=== PATIENT | female | born 1950 | race Caucasian/White ===

== ENCOUNTER 2018-01-20 13:53 | Outpatient (CLI) | payer MEDICARE, BC | END 2018-01-20 13:54 | disposition home or self-care (01) | LOC: BICMAMMO 13:53 | PROVIDERS: ATTEND Family Medicine | DX: Z12.31 Encounter for screening mammogram for malignant neoplasm of breast (principal) | CPT/HCPCS: 77063; 77067 ==

== ENCOUNTER 2018-04-08 10:35 | Day surgery (SDC) | payer MEDICARE, BC ==
[2018-04-07 13:27] VITALS: BMI 38.7
[2018-04-08] MEDS ORDERED: Bupivacaine HCl 0.5%/Epinephrine 1:200,000/PF 30 ml Vial ONE (12:29)
[2018-04-08] MEDS ORDERED: PROPOFOL 200 MG/20 ML VIAL ONE (13:11)
[2018-04-08] MEDS ORDERED: Lidocaine 1% PF 5 ML VIAL ONE (13:11)
[2018-04-08] MEDS ORDERED: Ketorolac Tromethamine 30 MG/ML VIAL ONE (13:11)
[2018-04-08] MEDS ORDERED: Metoclopramide HCl 10 MG/2 ML VIAL ONE (13:11)
[2018-04-08] MEDS ORDERED: Ondansetron PF 4 MG/2 ML Vial ONE (13:11)
[2018-04-08] MEDS ORDERED: Dexamethasone 20 MG/5 ML VIAL ONE (13:11)
[2018-04-08] MEDS ORDERED: PHENYLEPHRINE-NS 100 MCG/ML 10 ML SYRINGE ONE (13:11)
[2018-04-08] MEDS ORDERED: Fentanyl 100 MCG/2 ML VIAL ONE ×2 (14:37→16:14)
[2018-04-08] MEDS ORDERED: Midazolam HCl 2 mg/2 ml Vial ONE (14:37)
[2018-04-08 14:40] LABS: #Basophils 0.1 thou/uL (0.0-0.2); #Eosinphils 0.1 thou/uL (0.0-0.7); #Lymphocytes 2.2 thou/uL (1.20-3.40); #Monocytes 0.7 thou/uL (0.11-0.59); #Neutrophils 5.8 thou/uL (1.40-6.50); %Basophils 0.6 % (0.0-1.0); %Eosinophils 1.6 % (0.0-10.0); %Lymphocytes 24.7 % (21.0-51.0); %Monocytes 7.4 % (0.0-10.0); %Neutrophils 65.7 % (42.0-75.0); Hemoglobin 12.9 g/dL (12.0-16.0); Mean Corpuscular HGB CONC 32.1 g/dL (32.0-36.0); Mean Corpuscular Hemoglobin 30.2 pg (27.0-31.0); Mean Corpuscular Volume 94.1 fL (78.0-98.0); Mean Platelet Volume 7.8 fL (7.4-10.4); Platelet Count 243 thou/uL (130-400); RBC Distribution Width 12.9 % (11.5-14.5); Red Blood Cell (RBC) Count 4.28 mill/uL (4.20-5.40); White Blood Cell (WBC) Count 8.8 thou/uL (4.8-10.8)
[2018-04-08 15:01] LABS: Anion Gap 14 mmol/L (10-20); BUN (Urea Nitrogen) 17 mg/dL (9.8-20.1); Calc. Creatinine Clearance 114 mL/min (70-130); Calcium 9.7 mg/dL (7.8-10.44); Carbon Dioxide 25 mmol/L (23-31); Chloride 108 mmol/L (98-107); Estimated GFR-MDRD 78; Glucose 96 mg/dL (80-115); Sodium 143 mmol/L (136-145)
--- NOTE | 2018-04-08 15:42 | RAD ---
PORTABLE CHEST 1 VIEW: Date: 04/08/18 Time: 1423 hours HISTORY: Preoperative evaluation. Fracture right arm. FINDINGS/IMPRESSION: The heart size is normal. The lungs are expanded without focal areas of consolidation, pneumothorax, or pleural effusions. There is a linear lucency in the right proximal humerus which may represent fra cture. POS: [facility]
[2018-04-08] MEDS ORDERED: Bupivacaine PF 0.5% 30 ML VIAL ONE (16:05)
[2018-04-08] MEDS ORDERED: Bacitracin Zinc Ointment 30 gm TUBE ONE (16:05)
[2018-04-08] MEDS ORDERED: CEFAZOLIN 2 GM/50 ML BAG ONE (16:32)
[2018-04-08] MEDS ORDERED: Sodium Chloride 0.9% 10 ML ONE (17:10)
--- NOTE | 2018-04-08 20:47 | RAD ---
INTRAOPERATIVE IMAGING OF RIGHT WRIST: 04/08/18 COMPARISON: None. HISTORY: Fracture status post ORIF. FINDINGS: Three intraoperative images are provided. Imaging demonstrates placement of a volar screw and plate f ixation of the distal radius. IMPRESSION: ORIF as above. POS: [facility]
--- NOTE | 2018-04-11 15:32 | OP ---
PREOPERATIVE DIAGNOSIS: Right displaced 3-part distal radius fracture. POSTOPERATIVE DIAGNOSIS: Right displaced 3-part distal radius fracture with punch central around the central ridge with a component on both the medial complex and on the styloid complex. PROCEDURES PERFORMED: 1. Open reduction and internal fixation of right distal radius fracture, 3-part. 2. Bone grafting of -punch lesion using approximately 6 mL of cancellous bone chips presoaked in blood before placing. ESTIMATED BLOOD LOSS: 10 mL. TOURNIQUET TIME: 48 minutes. C-ARM USE: Yes. INDICATION FOR PROCEDURE: The patient had been brought to the operating room, because a -punch le familia was seen in the sagittal plane with about 3 to 4-mm depression and in the frontal plane on both sides of the central ridge about 1 to 2 mm. For this reason, she was brought because the intra-artic ular component of this fracture necessitated the need to get as close to anatomic reduction as gina jerez. She was counseled so was her son and came to the operating room after a block. DESCRIPTION OF PROCEDURE: After successful augmentation of a block with general LMA technique, the p atient had the limb prepped and draped, time-out was done appropriately, tourniquet inflated to 250 m mHg pressure exsanguination, a zigzag incision centered over the flexor carpi radialis was done, we d eveloped interval between the radial artery and flexor carpi radialis. L-shaped incision was then ma de in the pronator quadratus and we freed up the brachioradialis from the styloid to allow better man euverability. We then reduced the fracture except for the -punch with approximately 10-degree pal mar tilt to match the contralateral side. We then began with use of elevation of the fragments, soak ed the bone graft in blood and normal saline and then placed this bone graft underneath the -punch regions until in the frontal and sagittal plane it was nearly anatomic. You could still see the fra cture line, but there was no further depression in the frontal and sagittal plane. At this point, we performed the open reduction, percutaneous pinning x2 styloid pins with appropriate tilt. We placed a [employer] 4-hole subarticular distal radius plate across the fracture and centered in the frontal sagittal plane in the usual technique of plates and screws in distal row first to achi quinn more tilt. We then achieved approximately 10-degree palmar tilt, which nearly matched that of co ntralateral side. With this tilt and then placing screws proximal to the fracture, we maintained the position and there was no gross movement once the K-wires were removed. We released the tourniquet. The radiographs showed excellent position in frontal and sagittal plane with no screw migration in the joint, and then we were able to repair the pronator quadratus after ac hieving hemostasis using an interrupted 0 Vicryl in a bvuste-oi-coalf pattern. Subcutaneous closure was accomplished with a running 4-0 Monocryl and the skin reapproximated with 4-0 nylon in interrupte d mattress pattern. Bulky dressing was applied along with sugar-tong splint and the patient left the operating room without evidence of anesthetic or operative complications.
--- NOTE | 2018-04-13 08:15 | EKG ---
Test Reason : PREOP Blood Pressure : / mmHG Vent. Rate : 082 BPM Atrial Rate : 082 BPM P-R Int : 166 ms QRS Dur : 080 ms QT Int : 374 ms P-R-T Axes : 064 020 028 degrees QTc Int : 436 ms Normal sinus rhythm Nonspecific ST abnormality Abnormal ECG No previous ECGs available Confirmed by DR. Lev HERRERA ([id number]) on 04/13/2018 8:15:04 AM Referred By: AMOS Confirmed By:DR. Lev HERRERA
== END 2018-04-08 20:07 | disposition home or self-care (01) ==
LOC: SDC 10:35
PROVIDERS: ATTEND Orthopaedic Surgery Hand Surgery
PROC: 0PSH04Z Reposition Right Radius with Internal Fixation Device, Open Approach (ICD-10-PCS; principal; 2018-04-08)
PROC: 0PUH0KZ Supplement Right Radius with Nonautologous Tissue Substitute, Open Approach (ICD-10-PCS; 2018-04-08)
DX: S52.571A Other intraarticular fracture of lower end of right radius, initial encounter for closed fracture (principal); Z79.899 Other long term (current) drug therapy; W19.XXXA Unspecified fall, initial encounter
CPT/HCPCS: 25609; 25999; 71045; 73100; 76001; 80048; 85025; 93005; C1713 ×2; 36415; 93010; J0670; J1100; J1885; J2001; J2250; J2405; J2704; J2765; J3010; J3490; S0020

== ENCOUNTER 2018-12-08 12:45 | Outpatient (CLI) | payer MEDICARE, BC ==
--- NOTE | 2018-12-08 14:05 | RAD ---
TWO VIEWS OF THE CHEST: COMPARISON: 04/08/2018. HISTORY: Preoperative radiograph. FINDINGS: Two views of the chest show normal sized cardiomediastinal silhouette. There is no evidence of consol idation, mass, or pleural effusion. The bones are unremarkable. IMPRESSION: No evidence of acute cardiopulmonary disease. POS: [facility]
[2018-12-08 14:19] LABS: #Eosinphils 0.2 thou/uL (0.0-0.7); #Lymphocytes 2.7 thou/uL (1.20-3.40); #Monocytes 0.5 thou/uL (0.11-0.59); %Basophils 0.5 % (0.0-1.0); %Eosinophils 2.2 % (0.0-10.0); %Lymphocytes 36.2 % (21.0-51.0); %Monocytes 7.2 % (0.0-10.0); %Neutrophils 53.9 % (42.0-75.0); Hemoglobin 14.3 g/dL (12.0-16.0); Mean Corpuscular HGB CONC 31.2 g/dL (32.0-36.0); Mean Corpuscular Hemoglobin 30.4 pg (27.0-31.0); Mean Corpuscular Volume 97.2 fL (78.0-98.0); Mean Platelet Volume 7.9 fL (7.4-10.4); Platelet Count 225 thou/uL (130-400); White Blood Cell (WBC) Count 7.4 thou/uL (4.8-10.8)
[2018-12-08 14:32] LABS: Bilirubin Negative (Negative); Blood, Urine Negative (Negative); Clarity Clear (Clear); Glucose, Urine (Dipstick) Normal (Negative); Leukocyte Negative Leu/uL (Negative); Nitrite Negative (Negative); Protein, Urine (Dipstick) Negative (Neg-Trace); RBC/HPF 0-3 HPF (0-3); Squamous Epithelial 0-3 HPF (0-3); Urobilinogen Normal mg/dL (Less than 2); WBC/HPF 0-3 HPF (0-3)
[2018-12-08 14:40] LABS: INR-International Normal Ratio 0.9; Prothrombin Time 12.3 SEC (12.0-14.7)
[2018-12-08 14:41] LABS: Anion Gap 14 mmol/L (10-20); BUN (Urea Nitrogen) 16 mg/dL (9.8-20.1); Calc. Creatinine Clearance 0 mL/min (70-130); Calcium 9.8 mg/dL (7.8-10.44); Carbon Dioxide 26 mmol/L (23-31); Chloride 104 mmol/L (98-107); Estimated GFR-MDRD 74; Glucose 76 mg/dL (80-115); PTT 31.5 SEC (22.9-36.1); Potassium 4.4 mmol/L (3.5-5.1); Sodium 140 mmol/L (136-145)
[2018-12-08 14:48] LABS: Bacteria/HPF None Seen HPF (None Seen)
--- NOTE | 2018-12-08 17:03 | EKG ---
Test Reason : Blood Pressure : / mmHG Vent. Rate : 060 BPM Atrial Rate : 060 BPM P-R Int : 170 ms QRS Dur : 092 ms QT Int : 404 ms P-R-T Axes : 068 024 028 degrees QTc Int : 404 ms Normal sinus rhythm minimal st abnormality non specific When compared with ECG of 08-APR-2018 14:18, No significant change was found Confirmed by DR. Montez PAGE (3) on 12/08/2018 5:02:58 PM Referred By: CYNTHIA Confirmed By:DR. Montez PAGE
== END 2018-12-08 12:46 | disposition home or self-care (01) ==
LOC: LABBT 12:45
PROVIDERS: ATTEND Orthopaedic Surgery
DX: Z01.818 Encounter for other preprocedural examination (principal); M17.11 Unilateral primary osteoarthritis, right knee
CPT/HCPCS: 71046; 80048; 81001; 85025; 85610; 85730; 87081; 93005; 93010

== ENCOUNTER 2018-12-13 05:32 | Inpatient (IN) | payer MEDICARE, BC ==
[2018-12-08 13:20] VITALS: BMI 37.2
[2018-12-13] MEDS ORDERED: Sodium Chloride 0.9% 100 ML ONE (05:52)
[2018-12-13] MEDS ORDERED: ceFAZolin Sodium (SDC) 2 GM/100 ML BAG ONE (05:52)
[2018-12-13] MEDS ORDERED: Tranexamic Acid 1,000 MG/10 ML VIAL ONE (05:52)
[2018-12-13] MEDS ORDERED: Midazolam HCl 2 mg/2 ml Vial ONE ×2 (06:12→06:33)
[2018-12-13] MEDS ORDERED: Fentanyl 100 MCG/2 ML VIAL ONE ×3 (06:12→09:14)
[2018-12-13] MEDS ORDERED: Lidocaine 1% (PF) 30 ML VIAL ONE (06:12)
[2018-12-13] MEDS ORDERED: Ropivacaine 0.2% HCl/PF 20 ML ONE (06:12)
[2018-12-13] MEDS ORDERED: Vancomycin HCl 1.5 GM in Sodium Chloride 0.9% 250 ML 300 ML IVPB SCH (06:15)
[2018-12-13] MEDS ORDERED: Acetaminophen 325 MG TAB PO PRN (07:11)
[2018-12-13] MEDS ORDERED: Ondansetron PF 4 MG/2 ML Vial IVP PRN (07:11)
[2018-12-13] MEDS ORDERED: HYDROcodone/Acetaminophen 10/325 mg Tablet PO PRN ×2 (07:11)
[2018-12-13] MEDS ORDERED: Zolpidem Tartrate 5 MG TAB PO PRN (07:11)
[2018-12-13] MEDS ORDERED: diphenhydrAMINE 25 MG CAP PO PRN (07:11)
[2018-12-13] MEDS ORDERED: Promethazine HCl 25 MG/ML VIAL IM PRN ×2 (07:11→07:50)
[2018-12-13] MEDS ORDERED: traMADol HCl 50 MG TAB PO PRN (07:26)
[2018-12-13] MEDS ORDERED: Ondansetron HCl/PF 4 MG/2 ML Vial IVP PRN (07:50)
[2018-12-13] MEDS ORDERED: Promethazine HCl 25 MG/ML VIAL SLOW IVP PRN (07:50)
--- NOTE | 2018-12-13 10:12 | RAD ---
RIGHT KNEE TWO VIEWS: HISTORY: Postop total knee arthroscopy. FINDINGS: There are recent postop changes of total knee arthroplasty with good position and alignment. Soft ti ssue air is present. POS: [facility]
[2018-12-13] MEDS: Sodium Chloride 0.9% 1,000 ML IV SCH ×2 (10:23→16:17)
[2018-12-13] MEDS: Aspirin 81 mg Enteric Coated Tablet PO SCH ×2 (10:23→19:50)
[2018-12-13] MEDS: guaiFENesin ER 600 MG TAB PO SCH (10:24)
[2018-12-13] MEDS: Senokot S 8.6-50 MG TAB PO SCH ×2 (10:24→19:56)
[2018-12-13] MEDS: Multivitamin W/ Minerals 1 TAB PO SCH (10:24)
[2018-12-13] MEDS: Ferrous Gluconate 324 MG TAB PO SCH ×2 (10:24→19:50)
[2018-12-13] MEDS ORDERED: Prevnar 13-Val Conj/PF 0.5 ML SYRINGE IM ONE (10:30)
[2018-12-13] MEDS: Ketorolac Tromethamine 30 MG/ML VIAL IVP SCH ×2 (13:19→21:47)
[2018-12-13] MEDS: CEFAZOLIN 2 GM in Sodium Chloride 0.9% 100 ML IVPB SCH ×2 (13:19→21:47)
--- NOTE | 2018-12-13 15:13 | OP ---
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 POSTOPERATIVE DIAGNOSES: 1. 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 2. Intra-articular arthrofibrosis. DIRECTOR OF PLACEMENT: Curtis May PA-C ANESTHESIA: General via LMA, augmented with anterior sciatic block and indwelling adductor canal block. COMPONENTS USED: [employer] triathlon size 4 cemented cruciate sparing femoral component with a size 4 primary cemented tibial base plate, 9 mm polyethylene fixed bearing insert and S27 patellar button. TOURNIQUET TIME: 66 minutes at 300 mmHg. ESTIMATED BLOOD LOSS: Less than 100. FINDINGS: End-stage severe degenerative tricompartmental disease, [id number] arthrosis, periarticular osteophyte formation, large serous effusion, hypertrophic ArthroFit fibrotic synovium with significant stiffness preoperatively and tethering of the patella. Changes consistent with chronic degenerative genu valgum. DRAINS: None. SPECIMENS: None. COMPLICATIONS: None. INPUT: 1000 mL crystalloid. OUTPUT: 175 mL clear yellow urine. INDICATION FOR SURGERY: Lauren is a 68-year-old white female, who has had progressive left knee pain and problems with standing or walking for the last five to seven years. She has also had stiffness and discomfort in the knee chronically and has elected to proceed with total knee arthroplasty as definitive treatment of her pain. PROCEDURE IN DETAIL: After informed consent was obtained in the preoperative holding area, the patient was taken to the operative suite where general anesthesia was induced. Once adequate level of general anesthesia was obtained, the patient was positioned and a well-padded tourniquet was placed around the left proximal thigh. The left lower extremity was then prepped and draped in the usual sterile fashion. Prior to exsanguination, a time-out was called and all members of the surgical team agreed upon site, surgeon, and patient. The extremity was then exsanguinated and the tourniquet was raised. A midline longitudinal incision was then made directly over the patella extending 2 fingerbreadths above the superior pole of the patella and 2 fingerbreadths inferior to the inferior patellar pole of the patella. Deeper subcutaneous layers were dissected sharply and local bleeding was controlled with Bovie electrocautery. A quad tendon longitudinal split was then made sharply and a median parapatellar arthrotomy was carried out both sharp and with Bovie electrocautery, carried down to 1 fingerbreadth medial to the tibial tubercle. The knee was then placed into flexion and the patella was everted nicely, and a copious fat pad ectomy was performed allowing for greater exposure of the tibia. The computer-assisted distal femoral fiducial was then placed and pinned firmly, and the distal femoral cutting guide was pinned firmly into place. The oscillating saw was then used to remove the appropriate amount of bone. The 4-in-1 cutting block was then placed on the distal femur and the oscillating saw was used to remove the appropriate amount of bone off the anterior, posterior, and chamfer cuts. After completion of bone cuts, the anterior cruciate ligament was resected sharply and the posterior cruciate ligament retractor was placed and the tibia was subluxed for better exposure. Partial meniscectomies were carried out, and the tibial computer-assisted fiducial was pinned, and the cutting guide was placed. Oscillating saw was then used to remove the bone, with Hohmann retractors used to take care and protect the collateral ligaments. After the tibial resection was performed, a laminar ornithology teacher was placed in between the freshened bone cuts. The knee placed at 90 degrees and further bilateral meniscectomies were carried out, and the curved osteotome and curettage were used to remove any excess bone spurs in the posterior compartment. The trial femoral component, tibial baseplate were placed with the appropriate polyethylene trial insert with an appropriate polyethylene spacer and patellar button. The knee was taken through full range of motion with flexion and extension from 0 to 90 degrees and patellar broach squarely in the trochlea without any squinting or subluxation noted. The knee was also stable to varus and valgus stressing at 0, 15, 45, and 90 degrees of flexion. The drawer was negative. All trial components were then removed and the keel punch was used to provide the appropriate defect in the tibia with a mallet. The freshened bone cuts were copiously irrigated with pulsatile lavage of about 1.5 L to remove all excess debris. The freshened bone cuts were then dried with suction and lap sponge. The knee was placed in flexion and retractors were placed to provide access to all bone cuts. Tobramycin-impregnated methyl methacrylate cement was then placed on the freshened bone cuts and implants which were malleted firmly into place. Curettage and [place] elevators were used to remove any excess bone cement. The knee was placed into full extension and the patellar button was placed under compression, and the cement was allowed to cure. Once completed, the components were again taken through full range of motion and copious irrigation of the knee was carried out with another liter of normal saline. All components were inspected fully with full range of motion and varus and valgus stressing. There was no laxity noted and full extension was observed clinically. Primary closure was accomplished with #2 interrupted Vicryl stitch of the arthrotomy defect. This was oversewn with a #2 running Quill barbed stitch. The gravitational platelet system was then injected into the arthrotomy prior to closure. The subcutaneous layer was then closed with a running 0 barbed Monocryl stitch and skin closure accomplished with a running subcuticular 3-0 Monocryl barbed Quill stitch and augmented with cement on the skin. Tourniquet was lowered. Good spontaneous return of distal pulses was noted clinically and a sterile dressing was applied to the incision. The procedure was terminated without any complications. The patient was awakened in the operative suite and the was removed, and the patient was taken to the recovery room in stable condition. Job ID: [id number]
[2018-12-13] MEDS: Donepezil HCl 5 MG TAB PO SCH (19:50)
[2018-12-13] MEDS: traMADol HCl 50 MG TAB PO PRN (19:51)
[2018-12-14] MEDS: Sodium Chloride 0.9% 1,000 ML IV SCH ×3 (04:15→21:48)
[2018-12-14 05:51] LABS: Hemoglobin 11.2 g/dL (12.0-16.0); Mean Corpuscular HGB CONC 30.3 g/dL (32.0-36.0); Mean Corpuscular Hemoglobin 29.6 pg (27.0-31.0); Mean Corpuscular Volume 97.9 fL (78.0-98.0); Mean Platelet Volume 8.1 fL (7.4-10.4); Platelet Count 165 thou/uL (130-400); RBC Distribution Width 12.9 % (11.5-14.5); Red Blood Cell (RBC) Count 3.78 mill/uL (4.20-5.40); White Blood Cell (WBC) Count 7.7 thou/uL (4.8-10.8)
[2018-12-14] MEDS: Ketorolac Tromethamine 30 MG/ML VIAL IVP SCH ×3 (06:02→21:02)
--- NOTE | 2018-12-14 07:29 | PDOC.HOSPP ---
- Subjective Subjective: pt up in bed no complains - Objective Vital Signs & Weight: Vital Signs (12 hours) Temp Pulse Resp BP Pulse Ox 12/14/18 03:25 98.5 F 83 18 113/72 99 12/13/18 23:16 99.2 F 80 18 120/73 95 12/13/18 20:05 98.7 F 81 18 121/72 98 Weight Weight 210 lb I&O: 12/13/18 12/14/18 12/15/18 06:59 06:59 06:59 Intake Total 850 Output Total 975 Balance -125 Result Diagrams: 12/15/18 04:00 ROS - Review of Systems All systems: All other ROS were reviewed and found negative. ENT: denies: ear pain, ear discharge, nose pain, nose discharge, nose congestion , mouth pain, mouth swelling, throat pain, throat swelling, other Respiratory: denies: cough, dry, shortness of breath, hemoptysis, SOB with excertion, pleuritic pain, sputum, wheezing, other Cardiovascular: denies: chest pain, palpitations, orthopnea, paroxysmal noc. dyspnea, edema, light headedness, other - Medication Medications: Active Medications Generic Name Dose Route Start Last Admin Trade Name Freq PRN Reason Stop Dose Admin Aspirin 81 mg 12/13/18 09:00 12/13/18 19:50 Ecotrin PO 81 mg BID HEBER Administration Donepezil HCl 5 mg 12/13/18 21:00 12/13/18 19:50 Aricept PO 5 mg HS HEBER Administration Ferrous Gluconate 324 mg 12/13/18 09:00 12/13/18 19:50 Fergon PO 324 mg BID HEBER Administration Guaifenesin 600 mg 12/13/18 09:00 12/13/18 10:24 Mucinex PO Not Given DAILY HEBER Sodium Chloride 1,000 mls @ 100 mls/hr 12/13/18 07:15 12/14/18 04:15 Normal Saline 0.9% IV Not Given .Q10H HEBER Iron/Minerals/Multivitamins 1 tab 12/13/18 09:00 12/13/18 10:24 Theragran M PO Not Given DAILY HEBER Ketorolac Tromethamine 15 mg 12/13/18 14:00 12/14/18 06:02 Toradol IVP 12/15/18 14:01 15 mg Q8HR HEBER Administration Senna/Docusate Sodium 2 tab 12/13/18 09:00 12/13/18 19:56 Senokot S PO Not Given BID HEBER Tramadol HCl 100 mg 12/13/18 07:26 12/13/18 19:51 Ultram PO 100 mg Q6H PRN Administration Moderate Pain 4-6 - Exam Neck: negative: supple, symmetric, no JVD, no Thyromegaly, no lymphadenopathy, no carotid bruit, JVD Heart: negative: RRR, no murmur, no gallops, no rubs, normal peripheral pulses, irregular, diminshed peripheral pulses, murmur present, II/IV, III/IV Respiratory: negative: CTAB, no wheezes, no rales, no ronchi, normal chest expansion, no tachypnea, normal percussion, rales, rhonchi, tachypneic, wheezes Hosp A/P (1) Acute blood loss anemia Code(s): D62 - ACUTE POSTHEMORRHAGIC ANEMIA Status: Acute (2) Degenerative joint disease Code(s): M19.90 - UNSPECIFIED OSTEOARTHRITIS, UNSPECIFIED SITE Status: Acute - Plan will continue to monitor. pt on stool softeners. on asa for dvt ppx.
[2018-12-14] MEDS: Aspirin 81 mg Enteric Coated Tablet PO SCH ×2 (08:08→20:59)
[2018-12-14] MEDS: guaiFENesin ER 600 MG TAB PO SCH (08:08)
[2018-12-14] MEDS: Ferrous Gluconate 324 MG TAB PO SCH ×2 (08:08→21:00)
[2018-12-14] MEDS: Senokot S 8.6-50 MG TAB PO SCH ×2 (08:08→20:59)
[2018-12-14] MEDS: traMADol HCl 50 MG TAB PO PRN ×2 (08:09→20:59)
[2018-12-14] MEDS: Multivitamin W/ Minerals 1 TAB PO SCH (08:09)
[2018-12-14] MEDS: Ropivacaine HCl/PF 250 ML in Premix Bag 1 BAG NERVE BLCK SCH (11:03)
[2018-12-14] MEDS: Donepezil HCl 5 MG TAB PO SCH (20:59)
[2018-12-15 04:26] LABS: Hemoglobin 11.1 g/dL (12.0-16.0); Mean Corpuscular HGB CONC 32.5 g/dL (32.0-36.0); Mean Corpuscular Hemoglobin 31.4 pg (27.0-31.0); Mean Corpuscular Volume 96.4 fL (78.0-98.0); Mean Platelet Volume 7.7 fL (7.4-10.4); Platelet Count 159 thou/uL (130-400); RBC Distribution Width 12.5 % (11.5-14.5); Red Blood Cell (RBC) Count 3.55 mill/uL (4.20-5.40); White Blood Cell (WBC) Count 7.9 thou/uL (4.8-10.8)
[2018-12-15] MEDS: Ketorolac Tromethamine 30 MG/ML VIAL IVP SCH ×2 (06:18→13:45)
[2018-12-15] MEDS: traMADol HCl 50 MG TAB PO PRN (08:20)
[2018-12-15] MEDS: guaiFENesin ER 600 MG TAB PO SCH (08:22)
[2018-12-15] MEDS: Ferrous Gluconate 324 MG TAB PO SCH ×2 (08:22→19:53)
[2018-12-15] MEDS: Senokot S 8.6-50 MG TAB PO SCH ×2 (08:22→19:53)
[2018-12-15] MEDS: Multivitamin W/ Minerals 1 TAB PO SCH (08:22)
[2018-12-15] MEDS: Aspirin 81 mg Enteric Coated Tablet PO SCH ×2 (08:22→19:53)
[2018-12-15] MEDS: Sodium Chloride 0.9% 1,000 ML IV SCH (08:22)
--- NOTE | 2018-12-15 09:16 | PRG ---
DATE OF SERVICE: 12/15/2018 SUBJECTIVE: Lauren is a 68-year-old white female, postop day 2 from a right total knee arthroplasty. She is doing relatively well. She is scheduled for transfer to skilled facility tomorrow. OBJECTIVE: VITAL SIGNS: Temperature 97.6, pulse 90, respiratory rate 15, and blood pressure 144/74. GENERAL: She is alert and oriented to person, place, time, and situation. Grossly nonfocal, appropriate with examiner, and responsive. EXTREMITIES: Visual inspection of the right lower extremity demonstrates her incision to be clean and closed. No erythema. No strikethrough. She is neurovascularly intact in the right lower extremity. LABORATORY DATA: Hemoglobin and hematocrit 11.1 and 34.2. IMPRESSION: A 68-year-old female postop day 2, right total knee arthroplasty, doing well. PLAN: Continue current care. Probable transfer tomorrow to a skilled facility. Job ID: [id number]
[2018-12-15] MEDS: Ropivacaine HCl/PF 250 ML in Premix Bag 1 BAG NERVE BLCK SCH (10:32)
--- NOTE | 2018-12-15 15:06 | PDOC.HOSPP ---
- Subjective Subjective: pt up in bed no complains - Objective Vital Signs & Weight: Vital Signs (12 hours) Temp Pulse Resp BP Pulse Ox 12/15/18 11:53 98.3 F 90 14 134/81 97 12/15/18 07:55 96 12/15/18 07:34 97.6 F 90 15 144/74 H 96 12/15/18 07:13 100.9 F H 85 18 142/77 H 93 L 12/15/18 03:40 98.4 F 78 18 118/65 95 Weight Admit Weight 210 lb Weight 210 lb I&O: 12/14/18 12/15/18 12/16/18 06:59 06:59 06:59 Intake Total 850 900 Output Total 975 Balance -125 900 Result Diagrams: 12/15/18 04:00 ROS - Review of Systems All systems: All other ROS were reviewed and found negative. ENT: denies: ear pain, ear discharge, nose pain, nose discharge, nose congestion , mouth pain, mouth swelling, throat pain, throat swelling, other Respiratory: denies: cough, dry, shortness of breath, hemoptysis, SOB with excertion, pleuritic pain, sputum, wheezing, other Cardiovascular: denies: chest pain, palpitations, orthopnea, paroxysmal noc. dyspnea, edema, light headedness, other - Medication Medications: Active Medications Generic Name Dose Route Start Last Admin Trade Name Freq PRN Reason Stop Dose Admin Hydrocodone Bitart/Acetaminophen 2 tab 12/13/18 07:11 12/14/18 10:59 [place] 10/325 PO 2 tab Q4H PRN Administration Severe Pain (7-10) Aspirin 81 mg 12/13/18 09:00 12/15/18 08:22 Ecotrin PO 81 mg BID HEBER Administration Donepezil HCl 5 mg 12/13/18 21:00 12/14/18 20:59 Aricept PO 5 mg HS HEBER Administration Ferrous Gluconate 324 mg 12/13/18 09:00 12/15/18 08:22 Fergon PO 324 mg BID HEBER Administration Guaifenesin 600 mg 12/13/18 09:00 12/15/18 08:22 Mucinex PO 600 mg DAILY HEBER Administration Ropivacaine 250 ml/ Device 250 mls @ 10 mls/hr 12/13/18 07:26 07/25/19 10:32 NERVE BLCK 250 mls INF HEBER Administration As Directed Iron/Minerals/Multivitamins 1 tab 12/13/18 09:00 12/15/18 08:22 Theragran M PO 1 tab DAILY HEBER Administration Senna/Docusate Sodium 2 tab 12/13/18 09:00 12/15/18 08:22 Senokot S PO 2 tab BID HEBER Administration Sodium Chloride 10 ml 12/13/18 07:11 12/15/18 13:46 Flush - Normal Saline IVF 10 ml PRN PRN Administration Saline Flush Tramadol HCl 100 mg 12/13/18 07:26 12/15/18 08:20 Ultram PO 100 mg Q6H PRN Administration Moderate Pain 4-6 - Exam Neck: negative: supple, symmetric, no JVD, no Thyromegaly, no lymphadenopathy, no carotid bruit, JVD Heart: negative: RRR, no murmur, no gallops, no rubs, normal peripheral pulses, irregular, diminshed peripheral pulses, murmur present, II/IV, III/IV Hosp A/P (1) Degenerative joint disease Code(s): M19.90 - UNSPECIFIED OSTEOARTHRITIS, UNSPECIFIED SITE Status: Acute (2) Acute blood loss anemia Code(s): D62 - ACUTE POSTHEMORRHAGIC ANEMIA Status: Acute - Plan encouraged pt to do IS, pain controlled. will sign off.
[2018-12-15] MEDS: Donepezil HCl 5 MG TAB PO SCH (19:54)
[2018-12-16] MEDS: Multivitamin W/ Minerals 1 TAB PO SCH (09:08)
[2018-12-16] MEDS: Senokot S 8.6-50 MG TAB PO SCH (09:08)
[2018-12-16] MEDS: Aspirin 81 mg Enteric Coated Tablet PO SCH (09:08)
[2018-12-16] MEDS: Ferrous Gluconate 324 MG TAB PO SCH (09:08)
[2018-12-16] MEDS: guaiFENesin ER 600 MG TAB PO SCH (09:08)
[2018-12-16] MEDS: traMADol HCl 50 MG TAB PO PRN (09:12)
[2018-12-16 11:36] VITALS: BP 123/75; TEMP 98.1
== END 2018-12-16 13:11 | DRG 470 ==
LOC: SDC 05:32 → SJJU 07:11
PROVIDERS: ADMIT Orthopaedic Surgery; ATTEND Orthopaedic Surgery
PROC: 0SRC0J9 Replacement of Right Knee Joint with Synthetic Substitute, Cemented, Open Approach (ICD-10-PCS; principal; 2018-12-13)
DX: M17.11 Unilateral primary osteoarthritis, right knee (principal); D62 Acute posthemorrhagic anemia; M21.061 Valgus deformity, not elsewhere classified, right knee; F17.210 Nicotine dependence, cigarettes, uncomplicated
CPT/HCPCS: 36415; 85027; C1713; C1776; J0690; J1885; J2001; J2250; J2795; J3010; J3370; J3490; J7050

== ENCOUNTER 2019-06-13 10:35 | Outpatient (CLI) | payer MEDICARE, BC ==
--- NOTE | 2019-06-13 11:42 | MMO ---
Bilateral MAMMO Bilat Screen [facility]. CLINICAL HISTORY: Patient is 68 years old and is seen for screening. The patient has no family history of breast cancer. The patient has no personal history of cancer. VIEWS: The views performed were: bilateral craniocaudal with tomosynthesis and bilateral mediolateral oblique with tomosynthesis. FILMS COMPARED: The present examination has been compared to a prior imaging study performed at [facility] on 01/20/2018. This study has been interpreted with the assistance of computer-aided detection. MAMMOGRAM FINDINGS: There are scattered fibroglandular densities. There are no suspicious masses, suspicious calcifications, or new areas of architectural distortion. IMPRESSION: THERE IS NO MAMMOGRAPHIC EVIDENCE OF MALIGNANCY. A ROUTINE FOLLOW-UP MAMMOGRAM IN 1 YEAR IS RECOMMENDED. THE RESULTS OF THIS EXAM WERE SENT TO THE PATIENT. ACR BI-RADS Category 1 - Negative MAMMOGRAPHY NOTE: 1. A negative mammogram report should not delay a biopsy if a dominant of clinically suspicious mass is present. 2. Approximately 10% to 15% of breast cancers are not detected by mammography. 3. Adenosis and dense breasts may obscure an underlying neoplasm. Reported by: JAIR SILVERIO MD Electonically Signed: [id number]
== END 2019-06-13 10:36 | disposition home or self-care (01) ==
LOC: BICMAMMO 10:35
PROVIDERS: ATTEND Family Medicine
DX: Z12.31 Encounter for screening mammogram for malignant neoplasm of breast (principal)
CPT/HCPCS: 77063; 77067

== ENCOUNTER 2019-11-10 10:41 | Inpatient (IN) | payer MEDICARE, BC ==
[2019-11-10] MEDS ORDERED: Ketorolac Tromethamine 30 MG/ML VIAL ONE (11:28)
[2019-11-10] MEDS ORDERED: HYDROcodone/Acetaminophen 5/325 mg Tablet ONE (11:28)
--- NOTE | 2019-11-10 12:01 | RAD ---
XR Elbow Rt 4 View STANDARD History: Fall. Injury Comparison: None. Findings: Comminuted displaced fracture of the radial head which is displaced posteriorly. There is a fracture through the olecranon process of the ulna at the olecranon/diaphyseal junction with apex posterior angulation and overriding. Impression: 1. Comminuted displaced fracture of the radial head impacted upon the capitellum with displaced porti on along the posterior joint capsule. 2. Fracture through the olecranon process/diaphyseal junction with comminution and apex posterior ang ulation.
[2019-11-10] MEDS ORDERED: Fentanyl 100 MCG/2 ML VIAL ONE ×2 (12:56→13:41)
[2019-11-10] MEDS ORDERED: Ketamine 50 MG/ML (10ML VIAL) ONE (12:56)
[2019-11-10 13:11] LABS: #Lymphocytes 0.9 thou/uL (1.20-3.40); #Monocytes 0.4 thou/uL (0.11-0.59); #Neutrophils 11.4 thou/uL (1.40-6.50); %Basophils 0.2 % (0.0-1.0); %Eosinophils 0.3 % (0.0-10.0); %Lymphocytes 6.7 % (21.0-51.0); %Monocytes 3.3 % (0.0-10.0); %Neutrophils 89.5 % (42.0-75.0); Hemoglobin 14.8 g/dL (12.0-16.0); Mean Corpuscular HGB CONC 32.2 g/dL (32.0-36.0); Mean Corpuscular Hemoglobin 31.2 pg (27.0-31.0); Mean Platelet Volume 7.8 fL (7.4-10.4); Platelet Count 211 thou/uL (130-400); RBC Distribution Width 12.8 % (11.5-14.5); Red Blood Cell (RBC) Count 4.76 mill/uL (4.20-5.40); White Blood Cell (WBC) Count 12.7 thou/uL (4.8-10.8)
[2019-11-10 13:20] LABS: PTT 29.9 sec (22.9-36.1); Prothrombin Time 13.4 sec (12.0-14.7)
[2019-11-10 13:40] LABS: ALT (SGPT) 12 U/L (8-55); AST (SGOT) 17 U/L (5-34); Albumin 4.2 g/dL (3.4-4.8); Alkaline Phosphatase 75 U/L (40-110); Anion Gap 15 mmol/L (10-20); BUN (Urea Nitrogen) 14 mg/dL (9.8-20.1); Bilirubin, Total 0.4 mg/dL (0.2-1.2); Calc. Creatinine Clearance 0 mL/min (70-130); Calcium 9.6 mg/dL (7.8-10.44); Carbon Dioxide 25 mmol/L (23-31); Chloride 104 mmol/L (98-107); Estimated GFR-MDRD 66; Globulin 3.4 g/dL (2.4-3.5); Glucose 111 mg/dL (80-115); Potassium 4.3 mmol/L (3.5-5.1); Protein, Total 7.6 g/dL (6.0-8.3); Sodium 140 mmol/L (136-145)
--- NOTE | 2019-11-10 14:19 | RAD ---
EXAM: 2 views of the right elbow HISTORY: Reduction of elbow dislocation COMPARISON: 11/10/2019 at 11:03 AM FINDINGS: No elbow effusion is seen. There is a fracture of the proximal aspect of the ulna. There is persistent dislocation of the radial head at the elbow joint. There may be a fracture of the anterior aspect of the radial head. No significant degenerative changes are seen. Moderate diffuse s oft tissue swelling is present. IMPRESSION: 1. Persistent dislocation of radial head with possible fracture of the anterior aspect of the radial head 2. Proximal ulnar fracture
[2019-11-10] MEDS ORDERED: Morphine 2 MG/ML SYRINGE SLOW IVP PRN (14:44)
[2019-11-10] MEDS ORDERED: HYDROcodone/Acetaminophen 10/325 mg Tablet PO PRN ×2 (14:44)
[2019-11-10] MEDS ORDERED: Ondansetron PF 4 MG/2 ML Vial IV PRN (14:44)
[2019-11-10] MEDS ORDERED: TETANUS AND DIPHTHERIA TOX/PF 0.5 ML DISP.SYRIN IM SCH (14:45)
[2019-11-10] MEDS ORDERED: Communication Order-Pharmacy FS SCH (14:45)
--- NOTE | 2019-11-10 15:19 | CT ---
Exam: Right upper extremity CT without contrast. Right elbow CT without contrast HISTORY: Trauma. FINDINGS: There does not appear to be any fracture with regards the right humerus. There is a displaced fractur e involving the proximal ulna diaphysis with comminution. There does not appear to be intra-articular extension. There is a radial head fracture with subluxation of the radial head. There is a 0.7 cm x 0.8 cm fracture fragment. Donor site is presumed to be from the radial head. There is an associated joint effusion. IMPRESSION: 1. Presumed radial head fracture with subluxation. 2. Proximal ulnar diaphyseal fracture with comminution and fracture
[2019-11-10 18:48] VITALS: BMI 38.5
[2019-11-10] MEDS ORDERED: Prevnar 13-Val Conj/PF 0.5 ML SYRINGE IM ONE (21:00)
--- NOTE | 2019-11-10 21:47 | CON ---
DATE OF CONSULTATION: 11/10/2019 HISTORY OF PRESENT ILLNESS: Ms. Marie is a 69-year-old female, right-hand dominant status post fall, tripping on her toes, fell on the patient's right arm , history of dementia. The patient has multiple falls recently, rates her pain from 2 to 7 of 10, presents with a gross deformity of right elbow and some pain in her mouth and laceration under her mouth. Denies loss of consciousness, but is not aware of exactly what transpired. PAST MEDICAL HISTORY: 1. Incontinence. 2. Dementia. PAST SURGICAL HISTORY: Right total knee arthroplasty. History of right knee open procedure, nonspecified. Right distal radius ORIF. ALLERGIES: NO KNOWN DRUG ALLERGIES. MEDICATIONS: Include; 1. Aricept. 2. Sudafed. 3. VESIcare. SOCIAL HISTORY: The patient is a smoker. Denies alcohol. No illicit drug use. She is retired. REVIEW OF SYSTEMS: Except for history of dizziness, negative for visual or auditory hallucination, fever, chills, nausea, vomiting, diarrhea, chest pain, shortness of breath, numbness, or tingling. Positive for incontinence. PHYSICAL EXAMINATION: VITAL SIGNS: Blood pressure 182/101, pulse 59, respiratory rate 15, oxygen saturation 96%. GENERAL: Female, resting comfortably in bed, in no acute distress. EXTREMITIES: Right upper extremity, gross deformity of right elbow with gross instability. She is able to flex and extend her fingers distally with sensation intact. 2+ pulse, no openings of wound. LABORATORY DATA: H and H 14 and 46. INR 1. Creatinine 0.08. X-rays show a Bado IV Monteggia fracture dislocation of right radial head with multiple comminuted pieces, status post closed reduction with some improvement with subluxed radial head shortening the ulna. Impression, right radial head fracture dislocation with an ulnar shaft fracture, Bado IV Monteggia fracture. ASSESSMENT AND PLAN: The patient will be taken to the OR for an open reduction and internal fixation of her ulna. We will plan on likely replacing a radial head with implants coming in from [facility] for this procedure. The patient will be sent for CT scan to further confirm these findings. I discussed the risks and benefits of the procedure to include pain, scar, bleeding, infection, damage to vital structures, decreased range of motion and strength, continued pain despite surgical intervention, stiffness, damage to vital structures, loss of life or limb. The patient and family understands the risks and benefits and elected for procedure, to be taken to operative suite tomorrow once her implants are ready. Job ID: [id number] [facility]
[2019-11-11] MEDS ORDERED: Cyclobenzaprine 10 MG TAB PO PRN (01:45)
[2019-11-11] MEDS ORDERED: traMADol HCl 50 MG TAB PO PRN (01:45)
[2019-11-11] MEDS ORDERED: Ibuprofen 600 MG TAB PO PRN (01:45)
[2019-11-11] MEDS ORDERED: Sodium Chloride 0.9% 1,000 ML IV SCH ×2 (02:00→06:00)
[2019-11-11] MEDS ORDERED: hydrALAZINE 20 MG/ML VIAL SLOW IVP PRN (02:49)
--- NOTE | 2019-11-11 02:53 | HP ---
ATTENDING: Jose Dumont MD CONSULTS: Orthopedic Surgery, Dr. Miranda. CHIEF COMPLAINT: Mechanical fall, right wrist injury. HISTORY OF PRESENT ILLNESS: This is a 69-year-old female with only past medical history of memory loss. The patient reports tripping and falling within outreached hand. The patient states that she tripped over water hose. The patient denies any chest pain, shortness of breath or dizziness prior to falling. The patient denies any recent illness, no fever, chills, no cough or cold. The patient denies losing consciousness or hitting her head. ALLERGIES: DENIES ANY DRUG ALLERGIES. MEDICATIONS: 1. Aricept 10 mg at bedtime. 2. Sudafed 30 mg q.a.m. 3. VESIcare 10 mg daily. PAST MEDICAL HISTORY: Incontinence and dementia. PAST SURGICAL HISTORY: Right total knee arthroplasty, right distal radius repair. SOCIAL HISTORY: Smokes, states cutting back, has been smoking for greater than 20 years. Denies alcohol use. Denies illicit drug use. 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 The patient lives at home with her daughter and mother, and lost weight. REVIEW OF SYSTEMS: Negative unless otherwise indicated in the above HPI. PHYSICAL EXAMINATION: VITAL SIGNS: Blood pressure 162/80, temperature 98.6, pulse 70, respirations 16 , SpO2 of 97% on room air. HEENT: Head is normocephalic. Pupils are equal bilateral. Midface, stable. Nose exam normal, abrasion to upper and lower left side of lips, no bleeding, normal range of motion of neck, no cervical spine tenderness. Trachea is midline. No JVD. GENERAL: Well-appearing elderly female, awake, alert, in no distress. RESPIRATORY: Respirations are even and nonlabored, bilateral breath sounds, clear bilateral, occasional nonproductive cough. CARDIAC: Regular rate, regular rhythm. ABDOMEN: Soft, nontender, nondistended. PELVIS: Stable. EXTREMITIES: Moves all extremities, right upper extremity in a splint which is clean, dry, and intact. Neurovascularly intact x4. SKIN: Abrasion to the upper and lower left-sided lip, warm, pink, and dry. LABORATORY DATA: WBC 12.7, RBC 4.76, hemoglobin 14.8, hematocrit 46.1, platelets 211. PT 13.4, INR 1.0, APTT 29.9. Sodium 140, potassium 4.3, chloride 104, BUN 14, creatinine 0.86, estimated GFR 66, glucose 111, calcium 9.6, AST 17, ALT 12, alkaline phos 75, albumin 4.2. DIAGNOSTICS: 1. Elbow x-ray, impression, comminuted displaced fracture of the radial head impacted with multiple comminuted pieces, ulnar shaft fracture. 2. Post reduction right elbow proximal ulnar fracture, persistent dislocation of the radial head with possible fracture of the anterior aspect of the radial head. 3. Upper extremity CT, impression, presumed radial head fracture with subluxation, proximal ulnar diaphyseal fracture with comminution and fracture. IMPRESSION: 1. Mechanical fall. 2. Acute traumatic pain secondary to above. 3. Fracture dislocation of the right radial head with multiple comminuted pieces , ulnar shaft fracture. 4. History of dementia and urinary incontinence. PLAN: Admit the patient to the surgical floor. Pain control, n.p.o. after midnight as Dr. Miranda plans to take the patient to the OR for repair in the morning. PT and OT to evaluate and treat postop. The plan was discussed with the attending. The plan was discussed with the patient, who agrees. Job ID: [id number] [facility]
[2019-11-11 04:31] LABS: Anion Gap 13 mmol/L (10-20); BUN (Urea Nitrogen) 13 mg/dL (9.8-20.1); Calc. Creatinine Clearance 109 mL/min (70-130); Calcium 8.6 mg/dL (7.8-10.44); Carbon Dioxide 24 mmol/L (23-31); Chloride 105 mmol/L (98-107); Estimated GFR-MDRD 80; Glucose 107 mg/dL (80-115); Magnesium 1.8 mg/dL (1.6-2.6); Potassium 3.7 mmol/L (3.5-5.1); Sodium 138 mmol/L (136-145)
[2019-11-11 05:41] LABS: Band 9 % (5-11); Eosinophils 1 % (0-10); Hemoglobin 13.1 g/dL (12.0-16.0); Lymphocytes 18 % (21-51); MDiff Complete? YES; Mean Corpuscular HGB CONC 33.4 g/dL (32.0-36.0); Mean Corpuscular Hemoglobin 31.8 pg (27.0-31.0); Mean Corpuscular Volume 95.2 fL (78.0-98.0); Mean Platelet Volume 8.3 fL (7.4-10.4); Monocytes 7 % (0-10); Neutrophil 63 % (42-75); Platelet Count 186 thou/uL (130-400); Platelet Morphology Comment Appears Adequate; RBC Distribution Width 12.7 % (11.5-14.5); Reactive Lymphocytes 2 % (0-10); Red Blood Cell (RBC) Count 4.11 mill/uL (4.20-5.40); White Blood Cell (WBC) Count 8.4 thou/uL (4.8-10.8)
[2019-11-11] MEDS: Acetaminophen 500 MG TAB PO SCH ×3 (05:46→18:36)
[2019-11-11] MEDS: traMADol HCl 50 MG TAB PO SCH ×2 (05:46→11:13)
--- NOTE | 2019-11-11 08:01 | RAD ---
SINGLE VIEW CHEST: Date: 11/11/2019 HISTORY: Preoperative radiograph. FINDINGS: Single view of the chest shows a normal sized cardiomediastinal silhouette. There is no evidence of c onsolidation, mass, or pleural effusion. The bones are unremarkable. IMPRESSION: No evidence of acute cardiopulmonary disease. POS: EAA
[2019-11-11] MEDS ORDERED: Magnesium 2 GM/50 ML 2 GM in Premix Bag 1 BAG IVPB SCH (08:30)
[2019-11-11] MEDS ORDERED: Potassium Phosphate 15 MMOL in Sodium Chloride 0.9% 250 ML 250 ML IVPB SCH (08:30)
[2019-11-11] MEDS: Polyethylene Glycol 3350 17 GM Packet PO SCH (09:55)
[2019-11-11] MEDS: Senokot S 8.6-50 MG TAB PO SCH ×2 (09:55→21:34)
[2019-11-11] MEDS: Gabapentin 100 MG CAP PO SCH ×3 (09:55→21:33)
[2019-11-11] MEDS ORDERED: Zolpidem Tartrate 5 MG TAB PO PRN (11:22)
[2019-11-11] MEDS ORDERED: diphenhydrAMINE 50 MG/ML VIAL IM PRN (11:22)
[2019-11-11] MEDS ORDERED: Ondansetron PF 4 MG/2 ML Vial IVP PRN (11:22)
[2019-11-11] MEDS ORDERED: fentaNYL Citrate/PF 2,000 MCG in Sodium Chloride 0.9% 60 ML IV PRN (11:22)
[2019-11-11] MEDS ORDERED: diphenhydrAMINE 25 MG CAP PO PRN (11:22)
[2019-11-11] MEDS ORDERED: Naloxone HCl 0.4 mg/ml Vial IV PRN (11:22)
[2019-11-11] MEDS ORDERED: Promethazine HCl 25 MG/ML VIAL IM PRN (11:22)
[2019-11-11] MEDS ORDERED: diphenhydrAMINE 50 MG/ML VIAL IVP PRN (11:22)
[2019-11-11] MEDS ORDERED: Communication Order-Pharmacy FS SCH (11:30)
[2019-11-11] MEDS ORDERED: Lidocaine 1% PF 5 ML VIAL ONE (11:50)
[2019-11-11] MEDS ORDERED: PROPOFOL 200 MG/20 ML VIAL ONE (11:50)
[2019-11-11] MEDS ORDERED: diphenhydrAMINE 50 MG/ML VIAL ONE (11:50)
[2019-11-11] MEDS ORDERED: Rocuronium Bromide 10 MG/ML (10ML VIAL) ONE (11:50)
[2019-11-11] MEDS ORDERED: Ondansetron PF 4 MG/2 ML Vial ONE (11:50)
[2019-11-11] MEDS ORDERED: Glycopyrrolate 0.2 MG/ML 5 ML SYRINGE ONE (11:50)
[2019-11-11] MEDS ORDERED: Ketorolac Tromethamine 30 MG/ML VIAL ONE (11:50)
[2019-11-11] MEDS ORDERED: Dexamethasone 20 MG/5 ML VIAL ONE (11:50)
--- NOTE | 2019-11-11 12:20 | HP ---
Ms. Marie presented to the hospital yesterday after tripping and falling and landing on her right wrist. She had right arm pain. She had imaging studies revealing a fracture dislocation. She was admitted to the hospital yesterday by Christa Sawyer NP and has been seen by Dr. Miranda. He plans operative intervention today. She has no significant chronic medical problems and has been hemodynamically stable since admission. Her history and physical examination and imaging studies were reviewed. Brief physical examination was performed with no new findings. She is stable to proceed with Orthopedic Surgery and my findings agree with those of [facility]. Job ID: [id number]
[2019-11-11] MEDS ORDERED: Midazolam HCl 2 mg/2 ml Vial ONE (12:31)
[2019-11-11] MEDS ORDERED: Fentanyl 250 MCG/5 ML VIAL ONE (12:31)
[2019-11-11] MEDS ORDERED: Bupivacaine HCl 0.5%/Epinephrine 1:200,000/PF 30 ml Vial ONE (14:54)
[2019-11-11] MEDS: Ketorolac Tromethamine 30 MG/ML VIAL IVP SCH ×3 (15:12→23:44)
--- NOTE | 2019-11-11 15:12 | RAD ---
EXAM: 2 views of the right elbow HISTORY: Elbow fracture dislocation COMPARISON: 11/10/2019 FINDINGS: Limited intraoperative fluoroscopic views show the patient is status post plate and screw f ixation of the comminuted proximal ulnar fracture. There is been replacement of the radial head without evidence of dislocation at this time. No perihardware lucency is seen. IMPRESSION: Postsurgical changes of the right elbow without evidence of complication.
--- NOTE | 2019-11-11 18:15 | PRG ---
DATE OF SERVICE: 11/11/2019 SUBJECTIVE: The patient was seen this afternoon postop after a fixation of her right proximal radius fracture by Dr. Miranda. The patient was still a little bit sleepy, but answering my questions appropriately. She has a fentanyl PLUMBER'S ASSISTANT for pain control from Anesthesia. Reports no pain. Has not had anything to eat since surgery. OBJECTIVE: VITAL SIGNS: Temperature 98.3, pulse 96, respirations 16, oxygen saturation 95% on 2 L nasal cannula, and blood pressure 155/78. GENERAL: Well-appearing elderly female, sitting up in bed with no signs of acute distress. PULMONARY: Equal chest rise and fall. Clear breath sounds bilaterally. No signs of acute respiratory distress. CARDIAC: Regular rate and rhythm. GI: Abdomen is soft, nontender, nondistended. EXTREMITIES: 2+ pulses in all extremities. Gross motor and sensation are intact. Right upper extremity with splint that is clean, dry, and intact. NEUROLOGIC: GCS 15. LABORATORY FINDINGS: White count 8.4, hemoglobin 13.1, hematocrit 39.1, and platelets 186. Sodium 138, potassium 3.7, chloride 105, bicarb 24, BUN 13, creatinine 0.78, and glucose 107. DIAGNOSTIC FINDINGS: There are no diagnostic findings to report. ASSESSMENT: 1. Status post mechanical fall from standing. 2. Right proximal radius and ulnar fracture, status post repair. PLAN: Continue current diet. Anesthesia has prescribed the patient a fentanyl PLUMBER'S ASSISTANT. The patient also receiving Toradol. Scheduled repeat blood work in the morning. We will give her regular diet. She will work with Physical and Occupational Therapy tomorrow. We will likely transition her to oral pain medications in the morning, and she can go home in the afternoon if her pain was well controlled and was reported safe by PT. Job ID: [id number]
[2019-11-11] MEDS ORDERED: Donepezil HCl 5 MG TAB PO SCH (21:00)
[2019-11-11] MEDS: CEFAZOLIN 2 GM in Premix Bag 1 BAG IVPB SCH (21:34)
[2019-11-12] MEDS: Acetaminophen 500 MG TAB PO SCH ×2 (00:58→05:56)
--- NOTE | 2019-11-12 02:47 | PRG ---
DATE OF SERVICE: 11/11/2019 SUBJECTIVE: Patient was seen during evening rounds, postop day zero, status post fixation of the right proximal radius fracture. Patient is currently sleeping and in no acute distress. Patient's pain has been controlled with her fentanyl CYCLE DIRECTOR. OBJECTIVE: VITAL SIGNS: Stable, afebrile. GENERAL: Well-appearing elderly female, resting comfortably, in no acute distress. PLAN: We will start oral pain regimen and DC patient's CYCLE DIRECTOR in the morning. Patient worked with Physical and Occupational Therapy. If patient's pain is well controlled, she can be discharged home later in the day. Job ID: [id number]
[2019-11-12] MEDS: Ketorolac Tromethamine 30 MG/ML VIAL IVP SCH (05:56)
[2019-11-12] MEDS: CEFAZOLIN 2 GM in Premix Bag 1 BAG IVPB SCH (06:05)
[2019-11-12 08:16] VITALS: BP 116/68; TEMP 98.2
[2019-11-12 08:29] LABS: #Lymphocytes 1.3 thou/uL (1.20-3.40); #Monocytes 1.1 thou/uL (0.11-0.59); #Neutrophils 10.1 thou/uL (1.40-6.50); %Basophils 0.2 % (0.0-1.0); %Eosinophils 0.1 % (0.0-10.0); %Monocytes 9.1 % (0.0-10.0); %Neutrophils 80.6 % (42.0-75.0); Hemoglobin 12.7 g/dL (12.0-16.0); Mean Corpuscular HGB CONC 33.5 g/dL (32.0-36.0); Mean Corpuscular Hemoglobin 32.4 pg (27.0-31.0); Mean Corpuscular Volume 96.7 fL (78.0-98.0); Mean Platelet Volume 8.3 fL (7.4-10.4); Platelet Count 179 thou/uL (130-400); RBC Distribution Width 12.9 % (11.5-14.5); Red Blood Cell (RBC) Count 3.93 mill/uL (4.20-5.40); White Blood Cell (WBC) Count 12.6 thou/uL (4.8-10.8)
[2019-11-12 08:42] LABS: Anion Gap 10 mmol/L (10-20); BUN (Urea Nitrogen) 12 mg/dL (9.8-20.1); Calc. Creatinine Clearance 104 mL/min (70-130); Calcium 8.5 mg/dL (7.8-10.44); Carbon Dioxide 25 mmol/L (23-31); Chloride 108 mmol/L (98-107); Estimated GFR-MDRD 75; Glucose 102 mg/dL (80-115); Magnesium 2.1 mg/dL (1.6-2.6); Potassium 4.1 mmol/L (3.5-5.1); Sodium 139 mmol/L (136-145)
[2019-11-12] MEDS ORDERED: HYDROcodone/Acetaminophen 5/325 mg Tablet PO PRN (08:49)
[2019-11-12] MEDS: Gabapentin 100 MG CAP PO SCH (08:58)
[2019-11-12] MEDS: Polyethylene Glycol 3350 17 GM Packet PO SCH (09:00)
[2019-11-12] MEDS: Senokot S 8.6-50 MG TAB PO SCH (09:00)
--- NOTE | 2019-11-13 08:02 | OP ---
DATE OF PROCEDURE: 11/11/2019 PREOPERATIVE DIAGNOSES: Left ulna fracture shaft just proximal to the patient's coronoid process with a radial head fracture and a fracture dislocation Monteggia Bado IV variation. POSTOPERATIVE DIAGNOSES: Left ulna fracture shaft just proximal to the patient' s coronoid process with a radial head fracture and a fracture dislocation Monteggia Bado IV variation. PROCEDURES PERFORMED: 1. Open reduction and internal fixation of ulnar shaft fracture. 2. Radial head replacement. 3. Long-arm splint. SOA INTEGRATION ARCHITECT: Curtis May PA-C ANESTHESIOLOGIST: Lorin Meza MD ANESTHESIA: The patient received a general endotracheal intubation with 10 mL of 0.5% Marcaine plain with epinephrine. ANTIBIOTICS: Ancef 2 g. TOURNIQUET TIME: 168 minutes. ESTIMATED BLOOD LOSS: 60 mL. IMPLANTS: An Evolve 5.5 mm stem with a +4, 20 mm head, put in a six hole right LCP olecranon plate with a 2.0 lag screw, three 3.5 screws and five 2.7 screws. COMPLICATIONS: None. HISTORY OF PRESENT ILLNESS: Ms. Marie is a 69-year-old female, status post fall. The patient has dementia. She has had a history of falling, with recent fall and distal radius fracture ORIF . I discussed with the patient risks and benefits of right elbow fracture stabilization including pain, scar, bleeding, infection, damage to vital structures, decreased range of motion and strength, continued pain despite surgical intervention, need for further surgeries, loss of life or limb. The patient understood the risks and benefits and elected to proceed. DESCRIPTION OF PROCEDURE: Time-out was performed designating the patient's right upper extremity as the operative site based on site, consents, and marking. After time-out, the patient's right upper extremity was prepped and draped in sterile fashion. A posterior midline incision was made down over the ulna proximal to the triceps. We created a larger flap radially so we could get to the Ministerio interval, came down on the patient's olecranon and exposed muscle to help reduce our fracture into position. After completion of exposure of our olecranon, radial and ulnar flaps, we reduced, there was a split in the proximal segment, a butterfly fragment in the distal fracture. We reduced the butterfly fragment to the proximal segment and placed a 2-0 screw to lag it into position. We then placed our plate pinning it on both sides reducing the fracture. Took radiographs being happy with reduction. We placed two locking screws proximally keeping the coronoid out of the patient' s elbow joint, moved distally and used 3.5 screws to compress the two holes to help compress the fracture down. We placed one more 3.5 part distally. We then placed two oblique 2.7 screws. We then washed. We were happy with our reduction and overall position of the plate. We had a good reduction under AP and lateral radiographs. We then moved to radial head, came through the Ministerio interval and found the anconeus and the fat stripe between ECU, came down falling along the anterior edge of the elbow and coming down through the fascial plane, coming down through the capsule, found the inner ligament, which we released, came up the anterior aspect of the humerus to expose through the patient's extensor carpi radialis brevis and longus exposing the radial head. The patient had difficult to distinguish radial collateral ligament, could not tell if it was the avulsion with some soft tissue damage distally. We cut the radial head, it was mainly one large fragment, but subluxation was concerned ability to fix it based on position. Therefore, we cut and removed the head. We trialed multiple sizes. We actually sized it ultimately to 20, +4 and felt like that was the best fit, varus and valgus stability with some difficulty because of the attenuation of damage to the patient's collateral to perfectly gauge. Being happy with that position on AP and lateral radiographs, we also sized it and matched it actually perfectly, minus 1 mm to 2 mm to the head that we removed on the back table, felt that it pistoned in good position, therefore we elected that as our final implant. We took the collateral, placed our final implant in position. We washed, we took what we thought was a portion of the collateral, closed first annular ligament and portion of the capsule to the collateral with 0 Vicryl for the annular ligament and then the collateral component/fascial component we closed with a 2-0 FiberWire in a running stitch and closed the fascia on top of that with 0 Vicryl. We closed the fascia of the olecranon with 0 Vicryl. After this, we had a stable lateral collateral ligament with no opening as well as medially. We washed and closed subcu with 2-0 and finally arleen. Postop, the patient will remain in a splint for a week. I will see her back at that time. We will transition her to a hinged elbow brace. She will follow up with me in a week to begin range of motion. The patient will be discharged home with pain medications as per Trauma. She was given pain medications to go home with. Job ID: [id number] [facility]
== END 2019-11-12 12:15 | disposition home or self-care (01) | DRG 512 ==
LOC: ERS 10:41 → SURG B 14:46
PROVIDERS: ADMIT Specialist; ATTEND Specialist
PROC: 0PSHXZZ Reposition Right Radius, External Approach (ICD-10-PCS; 2019-11-10)
PROC: 0PSKXZZ Reposition Right Ulna, External Approach (ICD-10-PCS; 2019-11-10)
PROC: 0PSK04Z Reposition Right Ulna with Internal Fixation Device, Open Approach (ICD-10-PCS; principal; 2019-11-11)
PROC: 0PRH0JZ Replacement of Right Radius with Synthetic Substitute, Open Approach (ICD-10-PCS; 2019-11-11)
DX: S52.021A Displaced fracture of olecranon process without intraarticular extension of right ulna, initial encounter for closed fracture (principal); S01.511A Laceration without foreign body of lip, initial encounter; G30.9 Alzheimer's disease, unspecified; F02.80 Dementia in other diseases classified elsewhere, unspecified severity, without behavioral disturbance, psychotic disturbance, mood disturbance, and anxiety; F17.210 Nicotine dependence, cigarettes, uncomplicated; R32 Unspecified urinary incontinence; W01.0XXA Fall on same level from slipping, tripping and stumbling without subsequent striking against object, initial encounter; Z96.651 Presence of right artificial knee joint; S52.121A Displaced fracture of head of right radius, initial encounter for closed fracture; Z79.899 Other long term (current) drug therapy; Z28.21 Immunization not carried out because of patient refusal
CPT/HCPCS: 24620; 36415; 71045; 76000; 80048; 80053; 83735; 84100; 85007; 85025; 85027; 85610; 85730; 86850; 86900; 86901; 96372; 96374; C1713; C1776; J0360; J0670; J0690; J1100; J1200; J1885; J2001; J2250; J2405; J2704; J3010; J3475; J7050

== ENCOUNTER 2022-07-14 10:18 | Emergency (ER) | payer MEDICARE, BC ==
[2022-07-14] MEDS ORDERED: OLANZapine 5 MG TAB ONE (11:07)
[2022-07-14] MEDS ORDERED: OLANZapine 5 MG TAB PO SCH (11:15)
[2022-07-14 11:44] LABS: #Eosinphils 0.1 thou/uL (0.0-0.7); #Lymphocytes 1.7 thou/uL (1.20-3.40); #Monocytes 0.5 thou/uL (0.11-0.59); #Neutrophils 3.8 thou/uL (1.40-6.50); %Basophils 0.3 % (0.0-1.0); %Eosinophils 1.3 % (0.0-10.0); %Lymphocytes 27.2 % (21.0-51.0); %Monocytes 8.5 % (0.0-10.0); %Neutrophils 62.7 % (42.0-75.0); Hemoglobin 13.4 g/dL (12.0-16.0); Mean Corpuscular HGB CONC 32.5 g/dL (32.0-36.0); Mean Corpuscular Hemoglobin 31.7 pg (27.0-31.0); Mean Corpuscular Volume 97.7 fl (78.0-98.0); Mean Platelet Volume 8.6 fL (7.4-10.4); Platelet Count 164 10x3/uL (130-400); RBC Distribution Width 12.9 % (11.5-14.5); Red Blood Cell (RBC) Count 4.22 mill/uL (4.20-5.40); White Blood Cell (WBC) Count 6.1 10x3/uL (4.8-10.8)
[2022-07-14 12:04] LABS: ALT (SGPT) 13 U/L (8-55); AST (SGOT) 20 U/L (5-34); Albumin 3.8 g/dL (3.4-4.8); Alkaline Phosphatase 60 U/L (40-110); Anion Gap 13 mmol/L (10-20); BUN (Urea Nitrogen) 20 mg/dL (9.8-20.1); Bilirubin, Total 0.4 mg/dL (0.2-1.2); Calc. Creatinine Clearance 0 mL/min (70-130); Calcium 9.5 mg/dL (7.8-10.44); Carbon Dioxide 24 mmol/L (23-31); Chloride 108 mmol/L (98-107); Estimated GFR 80; Globulin 3.3 g/dL (2.4-3.5); Glucose 90 mg/dL (80-115); Potassium 4.1 mmol/L (3.5-5.1); Protein, Total 7.1 g/dL (5.8-8.1); Sodium 141 mmol/L (136-145)
[2022-07-14 15:47] LABS: Bacteria/HPF None Seen HPF (None Seen); Bilirubin Negative (Negative); Blood, Urine Negative (Negative); Clarity Clear (Clear); Glucose, Urine (Dipstick) Normal (Negative); Ketone, Urine Negative (Negative); Leukocyte 25 Leu/uL (Negative); Nitrite Negative (Negative); Protein, Urine (Dipstick) Negative (Neg-Trace); RBC/HPF 0-3 HPF (0-3); Specific Gravity, Urine 1.024 (1.002-1.036); Squamous Epithelial 0-3 HPF (0-3); Urobilinogen Normal mg/dL (Less than 2); WBC/HPF 0-3 HPF (0-3)
[2022-07-14 15:54] LABS: Amphetamine Not Detected (NotDetected); Barbiturates Screen Not Detected (NotDetected); Benzodiazepine Screen Not Detected (NotDetected); Cocaine Metabolite Screen Not Detected (NotDetected); Methadone Not Detected (NotDetected); Methamphetamine Not Detected (NotDetected); Opiate Screen Not Detected (NotDetected); Oxycodone Screen Not Detected (NotDetected); Phencyclidine (PCP) Not Detected (NotDetected); THC/Cannabinoid Screen Not Detected (NotDetected); Tricyclic Screen Not Detected (NotDetected)
== END 2022-07-14 16:54 | disposition home or self-care (01) ==
LOC: ERS 10:18
DX: F03.90 Unspecified dementia, unspecified severity, without behavioral disturbance, psychotic disturbance, mood disturbance, and anxiety (principal); F17.210 Nicotine dependence, cigarettes, uncomplicated
CPT/HCPCS: 36415; 70450; 80053; 80306; 81003; 81015; 84443; 85025; 93005

== ENCOUNTER 2023-04-02 16:27 | Inpatient (IN) | payer MEDICARE, BC ==
[~2023-04-02 16:27] MED LIST: Iopamidol-370 76% 500 ML MDV (1 ML CHARGE) ONE
[2023-04-02 17:12] LABS: #Monocytes 0.9 thou/uL (0.11-0.59); #Neutrophils 7.6 thou/uL (1.40-6.50); %Basophils 0.3 % (0.0-1.0); %Eosinophils 0.1 % (0.0-10.0); %Monocytes 8.6 % (0.0-10.0); %Neutrophils 75.7 % (42.0-75.0); Hematocrit 35.5 % (36.0-47.0); Hemoglobin 11.6 g/dL (12.0-16.0); Mean Corpuscular HGB CONC 32.7 g/dL (32.0-36.0); Mean Corpuscular Hemoglobin 29.8 pg (27.0-31.0); Mean Corpuscular Volume 91.3 fl (78.0-98.0); Mean Platelet Volume 10.6 fL (7.4-10.4); Platelet Count 209 10x3/uL (130-400); RBC Distribution Width 13.4 % (11.5-14.5); Red Blood Cell (RBC) Count 3.89 mill/uL (4.20-5.40)
[2023-04-02 17:16] LABS: Bilirubin Negative (Negative); Blood, Urine Trace (Negative); Clarity Clear (Clear); Glucose, Urine (Dipstick) Normal (Negative); Ketone, Urine Negative (Negative); Leukocyte Negative Leu/uL (Negative); Nitrite Negative (Negative); Protein, Urine (Dipstick) 30 mg/dL (Neg-Trace)
[2023-04-02] MEDS ORDERED: Cefepime 2 GM VIAL ONE (17:20)
[2023-04-02] MEDS ORDERED: Vancomycin 1 GM/200 ML (FROZEN) BAG ONE (17:20)
[2023-04-02 17:21] LABS: Amphetamine Not Detected (NotDetected); Barbiturates Screen Not Detected (NotDetected); Benzodiazepine Screen Not Detected (NotDetected); Cocaine Metabolite Screen Not Detected (NotDetected); Methadone Not Detected (NotDetected); Methamphetamine Not Detected (NotDetected); Opiate Screen Not Detected (NotDetected); Oxycodone Screen Not Detected (NotDetected); Phencyclidine (PCP) Not Detected (NotDetected); THC/Cannabinoid Screen Not Detected (NotDetected); Tricyclic Screen Not Detected (NotDetected)
[2023-04-02] MEDS ORDERED: Sodium Chloride 0.9% 100 ML ONE (17:21)
[2023-04-02 17:23] LABS: INR-International Normal Ratio 1.2
[2023-04-02 17:24] LABS: PTT 36.3 sec (22.9-36.1)
[2023-04-02 17:26] LABS: Actual Bicarbonate (HCO3v) 24.8 mEq/L (22-28); Analyzer IN Cardio ER; Base Excess 2.2 mEq/L (-2.0 to +3.0); Calcium, Ionized (venous) 1.01 mmol/L (1.16-1.32); Chloride (VBG) 105 mmol/L (98-106); Hematocrit-VBG 27 % (36.0-47.0); Hemoglobin (Hb) 9.2 g/dL (11.7-16.1); Potassium (VBG) 3.61 mmol/L (3.70-5.30); Sodium 139 mmol/L (133-146)
[2023-04-02 17:28] LABS: Specific Gravity, Urine 1.059 (1.002-1.036)
[2023-04-02 17:29] LABS: CAUTI Indications for Culture Alt mental st,lethar; Mucous/LPF 1+ LPF (<2+); RBC/HPF 0-3 HPF (0-3); WBC/HPF 0-3 HPF (0-3)
[2023-04-02 17:31] LABS: Urine Culture Reflex No No
[2023-04-02 17:40] LABS: Troponin I 0.011 ng/mL (< 0.028)
[2023-04-02 17:42] LABS: ALT (SGPT) 37 U/L (8-55); AST (SGOT) 50 U/L (5-34); Albumin 3.7 g/dL (3.4-4.8); Alkaline Phosphatase 85 U/L (40-110); Anion Gap 13 mmol/L (10-20); BUN (Urea Nitrogen) 16 mg/dL (9.8-20.1); Bilirubin, Total 0.6 mg/dL (0.2-1.2); CK (CPK) 760 U/L (29-168); Calc. Creatinine Clearance 0 mL/min (70-130); Calcium 9.1 mg/dL (7.8-10.44); Carbon Dioxide 26 mmol/L (23-31); Chloride 105 mmol/L (98-107); Estimated GFR 74; Globulin 3.1 g/dL (2.4-3.5); Glucose 110 mg/dL (80-115); Potassium 3.6 mmol/L (3.5-5.1); Protein, Total 6.8 g/dL (5.8-8.1); Sodium 140 mmol/L (136-145)
[2023-04-02] MEDS ORDERED: Senokot S 8.6-50 MG TAB PO PRN (18:36)
[2023-04-02] MEDS ORDERED: Acetaminophen 325 MG TAB PO PRN (18:36)
[2023-04-02] MEDS ORDERED: Acetaminophen 325 MG Suppository ONE (19:27)
[2023-04-02] MEDS ORDERED: Clindamycin/D5W 600 mg/50 ml Premix Bag ONE (19:32)
[2023-04-02] MEDS ORDERED: Vancomycin 1 GM in Premix 1 BAG IVPB SCH (21:00)
[2023-04-02] MEDS: Famotidine/PF 20 mg/2ml Vial SLOW IVP SCH (21:48)
[2023-04-02] MEDS: Doxycycline 100 MG in Sodium Chloride 0.9% 100 ML IVPB SCH (21:48)
[2023-04-02 22:28] VITALS: BMI 35.2
[2023-04-03 00:51] LABS: Troponin I Less than 0.010 ng/mL (< 0.028)
[2023-04-03] MEDS ORDERED: Cefepime 2 GM in Sodium Chloride 0.9% 100 ML IVPB SCH (06:00)
[2023-04-03 06:37] LABS: #Eosinphils 0.1 thou/uL (0.0-0.7); #Monocytes 0.8 thou/uL (0.11-0.59); #Neutrophils 4.4 thou/uL (1.40-6.50); %Basophils 0.4 % (0.0-1.0); %Lymphocytes 18.7 % (21.0-51.0); %Monocytes 12.6 % (0.0-10.0); %Neutrophils 66.7 % (42.0-75.0); Hematocrit 35.6 % (36.0-47.0); Hemoglobin 10.9 g/dL (12.0-16.0); Mean Corpuscular HGB CONC 30.6 g/dL (32.0-36.0); Mean Corpuscular Hemoglobin 29.5 pg (27.0-31.0); Mean Platelet Volume 11.2 fL (7.4-10.4); Platelet Count 156 10x3/uL (130-400); RBC Distribution Width 13.6 % (11.5-14.5); Red Blood Cell (RBC) Count 3.69 mill/uL (4.20-5.40); White Blood Cell (WBC) Count 6.7 10x3/uL (4.8-10.8)
[2023-04-03 06:39] LABS: Mean Corpuscular Volume 96.5 fl (78.0-98.0)
[2023-04-03 07:22] LABS: ALT (SGPT) 25 U/L (8-55); AST (SGOT) 26 U/L (5-34); Albumin 3.1 g/dL (3.4-4.8); Alkaline Phosphatase 67 U/L (40-110); Anion Gap 10 mmol/L (10-20); BUN (Urea Nitrogen) 13 mg/dL (9.8-20.1); Bilirubin, Total 0.4 mg/dL (0.2-1.2); CK (CPK) 410 U/L (29-168); Calc. Creatinine Clearance 122 mL/min (70-130); Calcium 8.6 mg/dL (7.8-10.44); Carbon Dioxide 26 mmol/L (23-31); Chloride 109 mmol/L (98-107); Estimated GFR 94; Globulin 2.6 g/dL (2.4-3.5); Glucose 86 mg/dL (80-115); Potassium 3.3 mmol/L (3.5-5.1); Protein, Total 5.7 g/dL (5.8-8.1); Sodium 142 mmol/L (136-145)
[2023-04-03 07:56] LABS: Troponin I Less than 0.010 ng/mL (< 0.028)
[2023-04-03] MEDS ORDERED: Electrolyte Replacement Protocol FS PRN (08:00)
[2023-04-03] MEDS ORDERED: Piperacillin/Tazobactam 3.375 GM in Sodium Chloride 0.9% 100 ML IVPB SCH (08:00)
[2023-04-03] MEDS ORDERED: Electrolyte Replacement Protocol 1 EACH FS SCH (08:00)
[2023-04-03] MEDS: Piperacillin/Tazobactam 3.375 GM in Sodium Chloride 0.9% 100 ML IVPB SCH ×3 (09:42→23:26)
[2023-04-03] MEDS: Potassium Chloride 20 MEQ in Premix 1 BAG IVPB SCH ×2 (09:46→13:05)
[2023-04-03] MEDS: Famotidine/PF 20 mg/2ml Vial SLOW IVP SCH ×2 (09:46→21:29)
[2023-04-03] MEDS: Cyanocobalamin (Vitamin B-12) 1,000 MCG TAB PO SCH (09:47)
[2023-04-03] MEDS ORDERED: HYDROcodone/Acetaminophen 5/325 mg Tablet PO PRN (09:50)
[2023-04-03] MEDS ORDERED: Sodium Chloride 0.9% 1,000 ML IV SCH (10:00)
[2023-04-03] MEDS: Doxycycline 100 MG in Sodium Chloride 0.9% 100 ML IVPB SCH ×2 (10:49→20:51)
[2023-04-03] MEDS: Ipratropium/Albuterol 3 ML NEB NEB SCH ×3 (12:47→23:39)
[2023-04-03 17:42] LABS: Potassium 3.8 mmol/L (3.5-5.1)
[2023-04-03] MEDS ORDERED: Non-Formulary Item 1 EACH (Buspirone Hcl [Buspirone Hcl] 7.5 MG Tablet) PO SCH (21:00)
[2023-04-03] MEDS: Aspirin 81 mg Enteric Coated Tablet PO SCH (21:28)
[2023-04-03] MEDS: OLANZapine 2.5 MG TAB PO SCH (21:28)
[2023-04-03] MEDS: Donepezil HCl 5 MG TAB PO SCH (21:28)
[2023-04-03] MEDS: guaiFENesin ER 600 MG TAB PO SCH (21:29)
[2023-04-03] MEDS: busPIRone HCl 5 MG TAB PO SCH (21:29)
[2023-04-04] MEDS: Piperacillin/Tazobactam 3.375 GM in Sodium Chloride 0.9% 100 ML IVPB SCH ×3 (03:07→20:35)
[2023-04-04 06:58] LABS: #Basophils 0.1 thou/uL (0.0-0.2); #Eosinphils 0.1 thou/uL (0.0-0.7); #Monocytes 0.5 thou/uL (0.11-0.59); %Basophils 0.9 % (0.0-1.0); %Eosinophils 1.2 % (0.0-10.0); %Lymphocytes 18.9 % (21.0-51.0); %Monocytes 8.1 % (0.0-10.0); %Neutrophils 70.4 % (42.0-75.0); Hematocrit 36.4 % (36.0-47.0); Hemoglobin 11.6 g/dL (12.0-16.0); Mean Corpuscular HGB CONC 31.9 g/dL (32.0-36.0); Mean Corpuscular Hemoglobin 29.4 pg (27.0-31.0); Mean Corpuscular Volume 92.2 fl (78.0-98.0); Mean Platelet Volume 10.9 fL (7.4-10.4); Platelet Count 219 10x3/uL (130-400); RBC Distribution Width 13.5 % (11.5-14.5); Red Blood Cell (RBC) Count 3.95 mill/uL (4.20-5.40); White Blood Cell (WBC) Count 5.7 10x3/uL (4.8-10.8)
[2023-04-04] MEDS: Ipratropium/Albuterol 3 ML NEB NEB SCH ×4 (07:24→23:38)
[2023-04-04 07:35] LABS: Anion Gap 14 mmol/L (10-20); BUN (Urea Nitrogen) 13 mg/dL (9.8-20.1); Calc. Creatinine Clearance 115 mL/min (70-130); Calcium 9.2 mg/dL (7.8-10.44); Carbon Dioxide 25 mmol/L (23-31); Chloride 109 mmol/L (98-107); Estimated GFR 91; Glucose 87 mg/dL (80-115); Potassium 3.6 mmol/L (3.5-5.1); Sodium 144 mmol/L (136-145)
[2023-04-04] MEDS ORDERED: guaiFENesin ER 600 MG TAB PO SCH ×2 (09:00)
[2023-04-04] MEDS: Cyanocobalamin (Vitamin B-12) 1,000 MCG TAB PO SCH (09:54)
[2023-04-04] MEDS: busPIRone HCl 5 MG TAB PO SCH ×2 (09:54→20:36)
[2023-04-04] MEDS: OLANZapine 2.5 MG TAB PO SCH ×2 (09:54→20:39)
[2023-04-04] MEDS: Doxycycline 100 MG in Sodium Chloride 0.9% 100 ML IVPB SCH ×2 (09:55→20:36)
[2023-04-04] MEDS: guaiFENesin ER 600 MG TAB PO SCH ×2 (09:55→20:36)
[2023-04-04] MEDS: Famotidine/PF 20 mg/2ml Vial SLOW IVP SCH ×2 (09:55→20:36)
[2023-04-04] MEDS: Sertraline 100 MG TAB PO SCH (09:55)
[2023-04-04] MEDS: Aspirin 81 mg Enteric Coated Tablet PO SCH ×2 (09:55→20:36)
[2023-04-04] MEDS: Donepezil HCl 5 MG TAB PO SCH (20:36)
[2023-04-05] MEDS: Piperacillin/Tazobactam 3.375 GM in Sodium Chloride 0.9% 100 ML IVPB SCH ×3 (03:50→20:52)
[2023-04-05] MEDS: Ipratropium/Albuterol 3 ML NEB NEB SCH ×4 (07:05→22:24)
[2023-04-05] MEDS: Aspirin 81 mg Enteric Coated Tablet PO SCH ×2 (09:24→21:00)
[2023-04-05] MEDS: busPIRone HCl 5 MG TAB PO SCH ×2 (09:24→21:00)
[2023-04-05] MEDS: Cyanocobalamin (Vitamin B-12) 1,000 MCG TAB PO SCH (09:24)
[2023-04-05] MEDS: Sertraline 100 MG TAB PO SCH (09:25)
[2023-04-05] MEDS: Doxycycline 100 MG in Sodium Chloride 0.9% 100 ML IVPB SCH ×2 (09:25→20:59)
[2023-04-05] MEDS: Famotidine/PF 20 mg/2ml Vial SLOW IVP SCH ×2 (09:25→21:00)
[2023-04-05] MEDS: OLANZapine 2.5 MG TAB PO SCH ×2 (09:37→20:59)
[2023-04-05] MEDS ORDERED: Furosemide 40 MG/4 ML VIAL SLOW IVP SCH (13:00)
[2023-04-05] MEDS: Donepezil HCl 5 MG TAB PO SCH (21:00)
[2023-04-06] MEDS: Piperacillin/Tazobactam 3.375 GM in Sodium Chloride 0.9% 100 ML IVPB SCH ×3 (03:17→20:26)
[2023-04-06] MEDS: Ipratropium/Albuterol 3 ML NEB NEB SCH ×4 (07:30→22:27)
[2023-04-06] MEDS: Aspirin 81 mg Enteric Coated Tablet PO SCH ×2 (09:17→20:28)
[2023-04-06] MEDS: Sertraline 100 MG TAB PO SCH (09:17)
[2023-04-06] MEDS: Doxycycline 100 MG in Sodium Chloride 0.9% 100 ML IVPB SCH ×2 (09:17→20:26)
[2023-04-06] MEDS: busPIRone HCl 5 MG TAB PO SCH ×2 (09:17→20:28)
[2023-04-06] MEDS: Cyanocobalamin (Vitamin B-12) 1,000 MCG TAB PO SCH (09:18)
[2023-04-06] MEDS: Famotidine/PF 20 mg/2ml Vial SLOW IVP SCH ×2 (09:18→20:28)
[2023-04-06] MEDS: OLANZapine 2.5 MG TAB PO SCH ×2 (09:18→20:28)
[2023-04-06] MEDS: Donepezil HCl 5 MG TAB PO SCH (20:28)
[2023-04-07] MEDS: Piperacillin/Tazobactam 3.375 GM in Sodium Chloride 0.9% 100 ML IVPB SCH ×2 (04:59→11:45)
[2023-04-07] MEDS: Ipratropium/Albuterol 3 ML NEB NEB SCH ×3 (06:58→19:03)
[2023-04-07] MEDS: Doxycycline 100 MG in Sodium Chloride 0.9% 100 ML IVPB SCH (09:34)
[2023-04-07] MEDS: Aspirin 81 mg Enteric Coated Tablet PO SCH (09:34)
[2023-04-07] MEDS: Sertraline 100 MG TAB PO SCH (09:34)
[2023-04-07] MEDS: Famotidine/PF 20 mg/2ml Vial SLOW IVP SCH (09:34)
[2023-04-07] MEDS: busPIRone HCl 5 MG TAB PO SCH (09:34)
[2023-04-07] MEDS: OLANZapine 2.5 MG TAB PO SCH (09:34)
[2023-04-07] MEDS: Cyanocobalamin (Vitamin B-12) 1,000 MCG TAB PO SCH (09:34)
[2023-04-07 19:28] VITALS: BP 135/76; TEMP 99
== END 2023-04-07 20:01 | DRG 177 ==
LOC: ERS 16:27 → INTOOBSV 18:33 → T4-A 18:33 → OBSVTOIN 04-03 07:48
PROVIDERS: ADMIT Internal Medicine; ATTEND Family Medicine
DX: J69.0 Pneumonitis due to inhalation of food and vomit (principal); G93.41 Metabolic encephalopathy; J96.01 Acute respiratory failure with hypoxia; L03.115 Cellulitis of right lower limb; G30.9 Alzheimer's disease, unspecified; F02.80 Dementia in other diseases classified elsewhere, unspecified severity, without behavioral disturbance, psychotic disturbance, mood disturbance, and anxiety; Z96.651 Presence of right artificial knee joint; Z79.899 Other long term (current) drug therapy; Z79.82 Long term (current) use of aspirin; Z98.890 Other specified postprocedural states
CPT/HCPCS: 36415; 51701; 70450; 70496; 70498; 71045; 71250; 74177; 80048; 80053; 80306; 81001; 82140; 82550; 82607; 82805; 83605; 83880; 84145; 84146; 84443; 84484; 85025; 87040; 87081; 93005; 93306; 94640; 96365; 96367; 96375; G0378; J0692; J1650; J1940; J2543; J3370-JW; J3480; J3490; J7050; J7620; Q9967; S0028